=== PATIENT | female | born 1985 | race American Indian/Alaskan Native ===

== ENCOUNTER 2017-06-23 11:57 | Emergency (ER) | payer MEDICAID ==
[2017-06-23 13:11] LABS: Basophils % (Auto) 0.5 % (0.0-1.8); Hematocrit 38.3 % (30.3-42.9); Hemoglobin 12.6 gm/dl (10.1-14.3); Mean Corpuscular HGB Conc 33 % (30-34); Mean Corpuscular Hemoglobin 26 pg (28-32); Mean Corpuscular Volume 80 fl (79-97); Red Blood Count 4.77 M/mm3 (3.65-5.03); Red Cell Distribution Width 14.6 % (13.2-15.2); White Blood Count 7.3 K/mm3 (4.5-11.0)
[2017-06-23 13:18] VITALS: BP 164/100
[2017-06-23 13:19] LABS: Bilirubin,Urine NEG (Negative); Blood,Urine NEG (Negative); Ketones,Urine 80 mg/dL (Negative); Leukocyte Esterase,Urine TR (Negative); Mucus,Urine FEW /HPF; Nitrite,Urine NEG (Negative); Protein,Urine <15 mg/dL mg/dL (Negative); Urobilinogen,Urine < 2.0 mg/dL (<2.0)
[2017-06-23 13:40] LABS: Alanine Aminotransferase 11 units/L (7-56); Albumin 4.5 g/dL (3.9-5); Albumin/Globulin Ratio 1.5 %; Alkaline Phosphatase 55 units/L (35-129); Anion Gap 20 mmol/L; BUN/Creatinine Ratio 6.66; Blood Urea Nitrogen 4 mg/dL (7-17); Calcium 9.1 mg/dL (8.4-10.2); Carbon Dioxide 22 mmol/L (22-30); Chloride 99.6 mmol/L (98-107); Glucose 106 mg/dL (65-100); Lipase 32 units/L (13-60); Potassium 3.8 mmol/L (3.6-5.0); Sodium 138 mmol/L (137-145); Total Protein 7.6 g/dL (6.3-8.2)
[2017-06-23] MEDS ORDERED: ZOFRAN IV ONE (14:03)
[2017-06-23] MEDS ORDERED: PERCOCET 5/325 PO ONE (14:04)
[2017-06-23] MEDS ORDERED: NAPROSYN PO ONE (14:05)
[2017-06-23 14:35] LABS: Platelet Count 190 K/mm3 (140-440)
[2017-06-23] MEDS ORDERED: MOTRIN PO ONE ×2 (14:37→15:09)
--- NOTE | 2017-06-23 15:13 | Emergency Department Report ---
ED Abdominal Pain HPI - General Chief Complaint: Abdominal Pain Stated Complaint: NAUSEA/VOMITING Time Seen by Provider: 06/23/17 13:19 Source: patient, EMS Mode of arrival: Stretcher Limitations: No Limitations - History of Present Illness Initial Comments: Patient is a 32-year-old female who presents with abdominal pain has been going on for the last 3 days. Patient was seen in outside ED and was diagnosed with colitis she was given Zofran and Bentyl and Flagyl for her symptoms. She reports that she has been having some diarrhea no blood in the stool, pain is a 7 out of 10 it is a crampy pain doesn't radiate it is located in the left lower quadrant nothing makes the abdominal pain better or worse. Patient states that she still can one dose of her medication and she came to the ED because she states that she still in pain. Patient denies fever, chills, alcohol ingestion chest pain or constipation. - Related Data Previous Rx's Medication Instructions Recorded Last Taken Type Ibuprofen [Motrin 600 MG tab] 600 mg PO Q8H PRN #40 tablet 12/23/15 Unknown Rx Sulfamethoxazole/Trimethoprim 1 each PO BID #20 tablet 12/23/15 Unknown Rx [Bactrim DS TAB] traMADol [Ultram 50 MG tab] 50 mg PO Q6HR PRN #20 tablet 12/23/15 Unknown Rx traMADol [Ultram 50 MG tab] 50 mg PO Q6HR PRN #11 tablet 06/23/17 Unknown Rx Allergies Allergy/AdvReac Type Severity Reaction Status Date / Time No Known Allergies Allergy Unverified 04/26/14 16:23 ED Review of Systems ROS: Stated complaint: NAUSEA/VOMITING Other details as noted in HPI Comment: All other systems reviewed and negative Constitutional: denies: chills, fever Eyes: denies: eye pain, eye discharge, vision change ENT: denies: ear pain, throat pain Respiratory: denies: cough, shortness of breath, wheezing Cardiovascular: denies: chest pain, palpitations Endocrine: no symptoms reported Gastrointestinal: abdominal pain, nausea, diarrhea Genitourinary: denies: urgency, dysuria, discharge Musculoskeletal: denies: back pain, joint swelling, arthralgia Skin: denies: rash, lesions Neurological: denies: headache, weakness, paresthesias Psychiatric: denies: anxiety, depression Hematological/Lymphatic: denies: easy bleeding, easy bruising ED Past Medical Hx - Past Medical History Previous Medical History?: Yes Hx Hypertension: No Hx Seizures: No Hx Asthma: No - Surgical History Past Surgical History?: Yes Additional Surgical History: right knee - Social History Smoking Status: Current Every Day Smoker Substance Use Type: Alcohol, Marijuana - Medications Home Medications: Home Medications Medication Instructions Recorded Confirmed Last Taken Type Ibuprofen [Motrin 600 MG tab] 600 mg PO Q8H PRN #40 tablet 12/23/15 Unknown Rx Sulfamethoxazole/Trimethoprim 1 each PO BID #20 tablet 12/23/15 Unknown Rx [Bactrim DS TAB] traMADol [Ultram 50 MG tab] 50 mg PO Q6HR PRN #20 tablet 12/23/15 Unknown Rx traMADol [Ultram 50 MG tab] 50 mg PO Q6HR PRN #11 tablet 06/23/17 Unknown Rx ED Physical Exam - General Limitations: No Limitations General appearance: alert - Head Head exam: Present: atraumatic - Eye Eye exam: Present: normal appearance - ENT ENT exam: Present: normal exam - Neck Neck exam: Present: normal inspection - Respiratory Respiratory exam: Present: normal lung sounds bilaterally - Cardiovascular Cardiovascular Exam: Present: regular rate - GI/Abdominal GI/Abdominal exam: Present: soft, tenderness (in LLQ and only with deep palpation. No rovising sign. ). Absent: distended - Extremities Exam Extremities exam: Present: normal inspection - Back Exam Back exam: Present: normal inspection - Neurological Exam Neurological exam: Present: alert, oriented X3 - Psychiatric Psychiatric exam: Present: normal affect - Skin Skin exam: Present: warm ED Course Vital Signs 06/23/17 06/23/17 06/23/17 12:00 12:02 12:04 Temperature Pulse Rate Respiratory Rate Blood Pressure 163/97 163/97 O2 Sat by Pulse 100 100 100 Oximetry 06/23/17 06/23/17 06/23/17 12:06 12:08 12:10 Temperature Pulse Rate Respiratory Rate Blood Pressure 163/97 163/97 163/97 O2 Sat by Pulse 100 100 99 Oximetry 06/23/17 06/23/17 06/23/17 12:11 12:14 12:15 Temperature Pulse Rate Respiratory 16 Rate Blood Pressure 163/97 163/97 O2 Sat by Pulse 98 100 99 Oximetry 06/23/17 06/23/17 06/23/17 12:16 12:18 12:20 Temperature 98.3 F Pulse Rate 52 L Respiratory Rate Blood Pressure 163/97 163/97 163/97 O2 Sat by Pulse 100 97 100 Oximetry 06/23/17 06/23/17 06/23/17 12:22 12:24 12:26 Temperature Pulse Rate Respiratory Rate Blood Pressure 163/97 163/97 163/97 O2 Sat by Pulse 98 100 100 Oximetry 06/23/17 06/23/17 06/23/17 12:28 12:30 12:32 Temperature Pulse Rate Respiratory Rate Blood Pressure 163/97 163/97 163/97 O2 Sat by Pulse 100 100 99 Oximetry 06/23/17 06/23/17 06/23/17 12:34 12:36 12:38 Temperature Pulse Rate Respiratory Rate Blood Pressure 163/97 163/97 163/97 O2 Sat by Pulse 100 100 100 Oximetry 06/23/17 06/23/17 06/23/17 12:40 12:42 12:44 Temperature Pulse Rate Respiratory Rate Blood Pressure 163/97 163/97 163/97 O2 Sat by Pulse 100 99 99 Oximetry 06/23/17 06/23/17 06/23/17 12:46 12:48 12:50 Temperature Pulse Rate Respiratory Rate Blood Pressure 163/97 163/97 163/97 O2 Sat by Pulse 100 100 100 Oximetry 06/23/17 06/23/17 06/23/17 12:52 12:54 12:56 Temperature Pulse Rate Respiratory Rate Blood Pressure 163/97 163/97 163/97 O2 Sat by Pulse 100 100 98 Oximetry 06/23/17 06/23/17 06/23/17 12:58 13:00 13:02 Temperature Pulse Rate Respiratory Rate Blood Pressure 163/97 164/100 164/100 O2 Sat by Pulse 99 100 99 Oximetry 06/23/17 06/23/17 06/23/17 13:04 13:06 13:17 Temperature Pulse Rate 85 Respiratory 18 Rate Blood Pressure 164/100 164/100 O2 Sat by Pulse 99 100 Oximetry 06/23/17 06/23/17 14:55 14:58 Temperature Pulse Rate Respiratory 16 18 Rate Blood Pressure O2 Sat by Pulse Oximetry - Reevaluation(s) Reevaluation #1: 06/23/17 15:27 Evaluated patient and discussed with patient that she will blood work and pain control. Patient currently states the pain is better and is agreeable with discharge. Patient continued to take her medications that she was given at the outside no need for new medications. ED Medical Decision Making - Lab Data Result diagrams: 06/23/17 12:49 06/23/17 12:49 - Medical Decision Making CCdx: Colitis DDx: Pancreatitis, peptic ulcer disease, UTI. We'll get CBC, CMP, UA, pain control and will reassess patient. Critical care attestation.: If time is entered above; I have spent that time in minutes in the direct care of this critically ill patient, excluding procedure time. ED Disposition Clinical Impression: Colitis, Abdominal pain Disposition: - TO HOME OR SELFCARE Is pt being admited?: No Does the pt Need Aspirin: No Condition: Good Instructions: Abdominal Pain (ED) Additional Instructions: Take your medication as directed from your first visit at the Emergency department. If you are experiencing worsening of your symptoms come back to the Emergency department Prescriptions: traMADol [Ultram 50 MG tab] 50 mg PO Q6HR PRN #11 tablet PRN Reason: Pain Referrals: PRIMARY CARE, [Primary Care Provider] - 3-5 Days
== END 2017-06-23 16:15 | disposition home or self-care (01) ==
LOC: ED 11:57
DX: K52.9 Noninfective gastroenteritis and colitis, unspecified (principal); F12.10 Cannabis abuse, uncomplicated; F17.200 Nicotine dependence, unspecified, uncomplicated
CPT/HCPCS: 36415; 80053; 81001; 83690; 85025; 96374; 99284; J2405

== ENCOUNTER 2017-06-26 22:02 | Emergency (ER) | payer SELFPAY ==
[2017-06-26 22:51] VITALS: BP 139/98
[2017-06-26 23:58] LABS: Alanine Aminotransferase 11 units/L (7-56); Albumin 4.4 g/dL (3.9-5); Alkaline Phosphatase 60 units/L (35-129); Anion Gap 23 mmol/L; Blood Urea Nitrogen 9 mg/dL (7-17); Calcium 9.6 mg/dL (8.4-10.2); Carbon Dioxide 21 mmol/L (22-30); Chloride 92.9 mmol/L (98-107); Glucose 91 mg/dL (65-100); Lipase 61 units/L (13-60); Potassium 3.7 mmol/L (3.6-5.0); Sodium 133 mmol/L (137-145); Total Protein 8.7 g/dL (6.3-8.2)
[2017-06-27 00:03] LABS: Basophils % (Auto) 2.3 % (0.0-1.8); Eosinophils % (Auto) 0.6 % (0.0-4.3); Hematocrit 42.9 % (30.3-42.9); Mean Corpuscular HGB Conc 33 % (30-34); Mean Corpuscular Volume 79 fl (79-97); Red Blood Count 5.43 M/mm3 (3.65-5.03); Red Cell Distribution Width 14.6 % (13.2-15.2); White Blood Count 8.5 K/mm3 (4.5-11.0)
[2017-06-27 00:04] LABS: Mean Corpuscular Hemoglobin 26 pg (28-32); Platelet Count 199 K/mm3 (140-440)
== END 2017-06-27 | disposition left against medical advice (07) ==
LOC: ED 22:02
DX: R11.11 Vomiting without nausea (principal); Z53.21 Procedure and treatment not carried out due to patient leaving prior to being seen by health care provider
CPT/HCPCS: 36415; 80053; 83690; 84703; 85025

== ENCOUNTER 2017-11-23 03:21 | Inpatient (IN) | payer SELFPAY ==
[2017-11-23 04:32] LABS: Basophils # (Auto) 0.1 K/mm3 (0.0-0.1); Basophils % (Auto) 0.7 % (0.0-1.8); Eosinophils % (Auto) 0.4 % (0.0-4.3); Hematocrit 35.3 % (30.3-42.9); Hemoglobin 11.3 gm/dl (10.1-14.3); Lymphocytes # (Auto) 1.9 K/mm3 (1.2-5.4); Mean Corpuscular HGB Conc 32 % (30-34); Mean Corpuscular Volume 81 fl (79-97); Monocytes # (Auto) 0.6 K/mm3 (0.0-0.8); Monocytes % (Auto) 5.5 % (0.0-7.3); Red Blood Count 4.38 M/mm3 (3.65-5.03); Red Cell Distribution Width 14.8 % (13.2-15.2)
[2017-11-23 04:41] LABS: BUN/Creatinine Ratio 10; Blood Urea Nitrogen 6 mg/dL (7-17); Hemolysis Index 1
[2017-11-23 04:45] LABS: Mean Corpuscular Hemoglobin 26 pg (28-32); Platelet Count 216 K/mm3 (140-440)
[2017-11-23] MEDS ORDERED: PHENERGAN PO ONE (08:59)
[2017-11-23 09:30] LABS: Alanine Aminotransferase 9 units/L (7-56); Lipase 22 units/L (13-60)
[2017-11-23 09:35] LABS: Bilirubin,Direct < 0.2 mg/dL (0-0.2)
[2017-11-23] MEDS ORDERED: REGLAN IV ONE (13:59)
[2017-11-23] MEDS ORDERED: NACL 0.9% 1000 ML 1,000 ML IV ONE ×2 (13:59→16:38)
--- NOTE | 2017-11-23 14:32 | Emergency Department Report ---
HPI - General Chief Complaint: Nausea/Vomiting/Diarrhea Time Seen by Provider: 11/23/17 13:30 - HPI HPI: This is a 32 year-old female presents to the emergency department with complaint of some right-sided abdominal and flank pain, nausea, vomiting and diarrhea. Patient says that the nausea, vomiting and diarrhea has been going on for past few days. Yesterday she started having the right-sided abdominal and/or flank pain. She started walking with a cane to support herself secondary to the pain in her abdomen. She then went to try and recuperate at her mother's house but then had an episode where she passed out. When she woke up from her syncopal episode she said the pain was worse in her abdomen. However currently, the patient denies any abdominal or flank pain and just says that she continues to have nausea, vomiting and diarrhea. She denies any fever, dysuria, vaginal bleeding or discharge. She denies any past medical history. Her primary care physician is Dr. Sullivan. No recent travel or sick contacts at home. ED Past Medical Hx - Past Medical History Previous Medical History?: No Hx Hypertension: No Hx Seizures: No Hx Asthma: No - Surgical History Past Surgical History?: Yes Additional Surgical History: right knee - Social History Smoking Status: Current Every Day Smoker Substance Use Type: Alcohol, Marijuana - Medications Home Medications: Home Medications Medication Instructions Recorded Confirmed Last Taken Type No Known Home Medications [No 11/23/17 11/23/17 Unknown History Reported Home Medications] ED Review of Systems ROS: Stated complaint: N/V/D Other details as noted in HPI Comment: All other systems reviewed and negative Constitutional: denies: chills, fever Eyes: denies: eye pain, eye discharge, vision change ENT: denies: ear pain, throat pain Respiratory: denies: cough, shortness of breath, wheezing Cardiovascular: denies: chest pain, palpitations Gastrointestinal: abdominal pain, nausea, vomiting, diarrhea Genitourinary: denies: urgency, dysuria, discharge Musculoskeletal: denies: back pain, joint swelling, arthralgia Skin: denies: rash, lesions Neurological: denies: headache, weakness, paresthesias Physical Exam - Physical Exam Vital Signs: Vital Signs 11/23/17 03:39 Temperature 98.8 F Pulse Rate 52 L Respiratory 18 Rate Blood Pressure 151/92 O2 Sat by Pulse 99 Oximetry Physical Exam: GENERAL: The patient is well-developed well-nourished. HENT: Normocephalic. Atraumatic. Patient has moist mucous membranes. EYES: Extraocular motions are intact. Pupils equal reactive to light bilaterally. NECK: Supple. Trachea is midline. CHEST/LUNGS: Clear to auscultation. There is no respiratory distress noted. HEART/CARDIOVASCULAR: Regular. There is no tachycardia. There is no murmur. ABDOMEN: Abdomen is soft. Mild right upper quadrant abdominal tenderness to palpation. No guarding or rebound tenderness. No peritoneal signs. Patient has normal bowel sounds. There is no abdominal distention. SKIN: Skin is warm and dry. NEURO: The patient is awake, alert, and oriented. The patient is cooperative. The patient has no focal neurologic deficits. The patient has normal speech. MUSCULOSKELETAL: There is no tenderness or deformity. There is no limitation range of motion. There is no evidence of acute injury. ED Course Vital Signs 11/23/17 03:39 Temperature 98.8 F Pulse Rate 52 L Respiratory 18 Rate Blood Pressure 151/92 O2 Sat by Pulse 99 Oximetry - Consultations Consultation #1: I spoke to the general surgeon manager combination, Dr. Ponce, who says she is happy to consult on the patient on the floor. 11/23/17 20:24 ED Medical Decision Making - Lab Data Result diagrams: 11/23/17 03:56 11/23/17 03:56 - EKG Data -: EKG Interpreted by Me EKG shows normal: sinus rhythm, axis, intervals, QRS complexes, ST-T waves Rate: bradycardia (49 bpm) - EKG Data When compared to previous EKG there are: previous EKG unavailable Interpretation: other (sinus bradycardia, no STEMI) - Radiology Data Radiology results: report reviewed, image reviewed interpreted by me: Abdominal x-ray shows nonspecific nonobstructive bowel gas. PROCEDURE: CT ABDOMEN PELVIS W CON TECHNIQUE: Computerized axial tomography of the abdomen and pelvis was performed after the IV injection of iodinated nonionic contrast. DLP 1582.01 mGy-cm. HISTORY: Abdominal pain. COMPARISON: No prior studies are available for comparison. FINDINGS: Visualized lower thorax: No significant abnormality. Liver: 2.1 cm low-attenuation lesion in the right lobe of the liver that demonstrates peripheral nodular enhancement and demonstrates fill-in on delayed imaging. Spleen: Normal size and attenuation. Gallbladder and biliary system: Normal. Pancreas: Normal. Adrenals: Normal. Kidneys: 6.5 mm low-attenuation lesion in the right kidney. GI tract: Transverse and more distal colon thick-walled but decompressed. Cecum distended with air and stool. A normal appendix is not confidently identified. What may be normal caliber appendix measuring 4.3 mm on coronal images, although this could represent a vessel (49-50, series 201). A few scattered mildly prominent loops of ileum and jejunum without transition point. Lymph nodes and mesentery: Normal. Vasculature: Normal. Bladder: Normal. Reproductive organs: Bilateral ovarian follicles. 2.4 cm left ovarian/adnexal low-attenuation lesion. Peritoneum: No free fluid. Musculoskeletal structures: Expansile lytic appearance of the anterior lateral left 6th rib with subtle irregularity and deformity. Other: Pelvic phleboliths. Tiny fat filled umbilical hernia. IMPRESSION: A few mildly prominent loops of ileum and jejunum, felt to more likely represent ileus or enteritis rather than obstruction. Colon decompressed. Normal appendix not confidently seen. Consider further evaluation including examination with oral contrast if there is continued clinical concern for appendiceal pathology. No secondary signs of appendicitis. Low-attenuation lesion in the right lobe of the liver with subtle peripheral nodular enhancement that demonstrates fill-in on delayed images, likely hemangioma. Consider MRI for further characterization if there is continued clinical concern and if patient has no contraindication to MRI. Low-attenuation left renal lesion, likely cyst. Consider confirmation with renal ultrasound. Probable left ovarian cyst. Expansile lytic appearance of the anterior lateral left 6th rib with subtle irregularity and deformity. Consider posttraumatic change, but cannot exclude neoplastic/infiltrative etiology. Recommend clinical correlation and further evaluation including bone scan if there is continued clinical concern. Transcribed By: REYNALDO Dictated By: MELINDA KURTZ MD Electronically Authenticated By: MELINDA KURTZ MD Signed Date/Time: 11/23/17 2940 - Medical Decision Making The patient presents with a few days of nausea, vomiting and diarrhea and some abdominal pain today. Labs are most unremarkable except for signs of dehydration. Abdominal x-ray does not show any acute process. CT of the abdomen and pelvis shows ileus versus enteritis, lesion of the right lobe of the liver, left ovarian cyst, and a lytic appearance of one of her ribs. She was given some Phenergan and Reglan and 2 L of IV fluid. Attempted oral challenge but the patient failed and continued to vomit. For this reason she' ll be admitted to the hospital for further evaluation and treatment is been accepted for admission by the hospitalist, Dr. Jacobson. - Differential Diagnosis cholelithiasis, cholecystitis, bowel production, gastroenteritis Critical Care Time: No Critical care attestation.: If time is entered above; I have spent that time in minutes in the direct care of this critically ill patient, excluding procedure time. ED Disposition Clinical Impression: Intractable abdominal pain, Dehydration Intractable vomiting Qualifiers: Vomiting type: unspecified Nausea presence: with nausea Qualified Code(s): R11.2 - Nausea with vomiting, unspecified Ovarian cyst Qualifiers: Laterality: left Qualified Code(s): N83.202 - Unspecified ovarian cyst, left side Disposition: OP ADMIT IP TO THIS HOSP Is pt being admited?: Yes Condition: Stable Referrals: ASHOK TRAN MD [Primary Care Provider] - 3-5 Days Time of Disposition: 20:27
--- NOTE | 2017-11-23 14:59 | XRay Report ---
ABDOMEN, 2 views: History: Abdominal pain. There is no evidence of free air beneath the diaphragms. The gas pattern within the abdomen is unremarkable. There is no evidence of bowel dilatation, significant air-fluid levels, or pathologic calcifications. Organ shadows are unremarkable. IMPRESSION: Unremarkable abdomen.
[2017-11-23] MEDS ORDERED: NORCO 5/325 PO ONE (16:15)
[2017-11-23 16:19] LABS: Bacteria,Urine 1+ /HPF (Negative); Bilirubin,Urine NEG (Negative); Blood,Urine NEG (Negative); Color,Urine Yellow (Yellow); Mucus,Urine FEW /HPF; Nitrite,Urine NEG (Negative); Urobilinogen,Urine < 2.0 mg/dL (<2.0)
--- NOTE | 2017-11-23 17:34 | Cat Scan Report ---
FINAL REPORT PROCEDURE: CT ABDOMEN PELVIS W CON TECHNIQUE: Computerized axial tomography of the abdomen and pelvis was performed after the IV injection of iodinated nonionic contrast. DLP 1582.01 mGy-cm. HISTORY: Abdominal pain. COMPARISON: No prior studies are available for comparison. FINDINGS: Visualized lower thorax: No significant abnormality. Liver: 2.1 cm low-attenuation lesion in the right lobe of the liver that demonstrates peripheral nodular enhancement and demonstrates fill-in on delayed imaging. Spleen: Normal size and attenuation. Gallbladder and biliary system: Normal. Pancreas: Normal. Adrenals: Normal. Kidneys: 6.5 mm low-attenuation lesion in the right kidney. GI tract: Transverse and more distal colon thick-walled but decompressed. Cecum distended with air and stool. A normal appendix is not confidently identified. What may be normal caliber appendix measuring 4.3 mm on coronal images, although this could represent a vessel (49-50, series 201). A few scattered mildly prominent loops of ileum and jejunum without transition point. Lymph nodes and mesentery: Normal. Vasculature: Normal. Bladder: Normal. Reproductive organs: Bilateral ovarian follicles. 2.4 cm left ovarian/adnexal low-attenuation lesion. Peritoneum: No free fluid. Musculoskeletal structures: Expansile lytic appearance of the anterior lateral left 6th rib with subtle irregularity and deformity. Other: Pelvic phleboliths. Tiny fat filled umbilical hernia. IMPRESSION: A few mildly prominent loops of ileum and jejunum, felt to more likely represent ileus or enteritis rather than obstruction. Colon decompressed. Normal appendix not confidently seen. Consider further evaluation including examination with oral contrast if there is continued clinical concern for appendiceal pathology. No secondary signs of appendicitis. Low-attenuation lesion in the right lobe of the liver with subtle peripheral nodular enhancement that demonstrates fill-in on delayed images, likely hemangioma. Consider MRI for further characterization if there is continued clinical concern and if patient has no contraindication to MRI. Low-attenuation left renal lesion, likely cyst. Consider confirmation with renal ultrasound. Probable left ovarian cyst. Expansile lytic appearance of the anterior lateral left 6th rib with subtle irregularity and deformity. Consider posttraumatic change, but cannot exclude neoplastic/infiltrative etiology. Recommend clinical correlation and further evaluation including bone scan if there is continued clinical concern.
[2017-11-23] MEDS ORDERED: NACL 0.9% 1000 ML 1,000 ML IV SCH (21:00)
--- NOTE | 2017-11-23 21:36 | History and Physical Report ---
History of Present Illness Date of examination: 11/23/17 Date of admission: 11/23/17 Chief complaint: CC Nausea vomiting Diarrhea and RUQ pain for 4 days History of present illness: [place]: 32 year-old female poor historian presents to the emergency department nausea, vomiting and diarrhea for about 3 to 4 days.Associated with Rt Upper quadrant /flank pain intermittent in nature. Vomiting x4 to 6 times per day.Loose watery BM's 3 to 4 per day.No fever or chills.No recent Abx use. Pain is 6 10.Sharp intermittent in nature.No recent exposure to any sick contacts.Apparently passed out.For a few seconds after feeling lightheaded while walking. Past Medical History None Surgical History right knee surgery.Not specified Social History Smoking Status: Current Every Day Smoker Substance Use Type: Alcohol, Marijuana Family History:Htn Medications Home Medications: Home Medications Medication Instructions Recorded Confirmed Last Taken Type No Known Home Medications [No 11/23/17 11/23/17 Unknown History Reported Home Medications] Review of Systems Stated complaint: N/V/D Other details as noted in HPI Comment: All other systems reviewed and negative Constitutional: denies: chills, fever Eyes: denies: eye pain, eye discharge, vision change ENT: denies: ear pain, throat pain Respiratory: denies: cough, shortness of breath, wheezing Cardiovascular: denies: chest pain, palpitations Gastrointestinal: abdominal pain, nausea, vomiting, diarrhea Genitourinary: denies: urgency, dysuria, discharge Musculoskeletal: denies: back pain, joint swelling, arthralgia Skin: denies: rash, lesions Neurological: denies: headache, weakness, paresthesias Medications and Allergies Allergies Allergy/AdvReac Type Severity Reaction Status Date / Time ondansetron HCl AdvReac Nausea Verified 06/26/17 22:37 [From Zofran (as hydrochloride)] Home Medications Medication Instructions Recorded Confirmed Last Taken Type No Known Home Medications [No 11/23/17 11/23/17 Unknown History Reported Home Medications] Active Meds: Active Medications Heparin Sodium (Porcine) (Heparin) 5,000 unit SUB-Q Q8HR [facility] Sodium Chloride (Nacl 0.9% 1000 Ml) 1,000 mls @ 125 mls/hr IV DIRECT SHAILA Exam - Constitutional Vitals: Temp Pulse Resp BP Pulse Ox 98.7 F 63 18 132/84 98 11/23/17 15:35 11/23/17 18:35 11/23/17 18:35 11/23/17 18:35 11/23/17 18:35 General appearance: Present: mild distress, well-nourished - EENT Eyes: Present: PERRL ENT: hearing intact, clear oral mucosa, other (Dry tongue) - Neck Neck: Present: supple, normal ROM - Respiratory Respiratory effort: normal Respiratory: bilateral: CTA - Cardiovascular Heart rate: 80 Rhythm: regular Heart Sounds: Present: S1 & S2. Absent: rub, click - Extremities Extremities: no ischemia, pulses intact, pulses symmetrical, No edema Peripheral Pulses: within normal limits - Abdominal General gastrointestinal: Present: soft, non-tender, non-distended, normal bowel sounds Female genitourinary: Present: normal - Rectal Rectal Exam: deferred - Integumentary Integumentary: Present: clear, warm, dry - Musculoskeletal Musculoskeletal: gait normal, strength equal bilaterally - Psychiatric Psychiatric: appropriate mood/affect, intact judgment & insight - Neurologic Neurologic: CNII-XII intact, moves all extremities - Allied Health Allied health notes reviewed: nursing, case management Results - Labs CBC & Chem 7: 11/23/17 03:56 11/23/17 03:56 Labs: Laboratory Last Values WBC 11.1 K/mm3 (4.5-11.0) H 11/23/17 03:56 RBC 4.38 M/mm3 (3.65-5.03) 11/23/17 03:56 Hgb 11.3 gm/dl (10.1-14.3) 11/23/17 03:56 Hct 35.3 % (30.3-42.9) 11/23/17 03:56 MCV 81 fl (79-97) 11/23/17 03:56 MCH 26 pg (28-32) L 11/23/17 03:56 MCHC 32 % (30-34) 11/23/17 03:56 RDW 14.8 % (13.2-15.2) 11/23/17 03:56 Plt Count 216 K/mm3 (140-440) 11/23/17 03:56 Lymph % (Auto) 17.0 % (13.4-35.0) 11/23/17 03:56 [place] % (Auto) 5.5 % (0.0-7.3) 11/23/17 03:56 Eos % (Auto) 0.4 % (0.0-4.3) 11/23/17 03:56 Baso % (Auto) 0.7 % (0.0-1.8) 11/23/17 03:56 Lymph # 1.9 K/mm3 (1.2-5.4) 11/23/17 03:56 [place] # 0.6 K/mm3 (0.0-0.8) 11/23/17 03:56 Eos # 0.0 K/mm3 (0.0-0.4) 11/23/17 03:56 Baso # 0.1 K/mm3 (0.0-0.1) 11/23/17 03:56 Seg Neutrophils % 76.4 % (40.0-70.0) H 11/23/17 03:56 Seg Neutrophils # 8.5 K/mm3 (1.8-7.7) H 11/23/17 03:56 Sodium 140 mmol/L (137-145) 11/23/17 03:56 Potassium 3.6 mmol/L (3.6-5.0) 11/23/17 03:56 Chloride 101.8 mmol/L (98-107) 11/23/17 03:56 Carbon Dioxide 24 mmol/L (22-30) 11/23/17 03:56 Anion Gap 18 mmol/L 11/23/17 03:56 BUN 6 mg/dL (7-17) L 11/23/17 03:56 Creatinine 0.6 mg/dL (0.7-1.2) L 11/23/17 03:56 Estimated GFR > 60 ml/min 11/23/17 03:56 BUN/Creatinine Ratio 10 % 11/23/17 03:56 Glucose 125 mg/dL (65-100) H 11/23/17 03:56 Calcium 9.0 mg/dL (8.4-10.2) 11/23/17 03:56 Total Bilirubin 0.40 mg/dL (0.1-1.2) 11/23/17 03:56 Direct Bilirubin < 0.2 mg/dL (0-0.2) 11/23/17 03:56 Indirect Bilirubin 0.2 mg/dL 11/23/17 03:56 AST 10 units/L (5-40) 11/23/17 03:56 ALT 9 units/L (7-56) 11/23/17 03:56 Alkaline Phosphatase 56 units/L (35-129) 11/23/17 03:56 Troponin T < 0.010 ng/mL (0.00-0.029) 11/23/17 09:31 Total Protein 7.2 g/dL (6.3-8.2) 11/23/17 03:56 Albumin 4.0 g/dL (3.9-5) 11/23/17 03:56 Albumin/Globulin Ratio 1.3 % 11/23/17 03:56 Lipase 22 units/L (13-60) 11/23/17 03:56 TSH 0.787 mlU/mL (0.270-4.200) 11/23/17 09:31 HCG, Qual Negative (Negative) 11/23/17 09:31 Urine Color Yellow (Yellow) 11/23/17 15:40 Urine Turbidity Clear (Clear) 11/23/17 15:40 Urine pH 7.0 (5.0-7.0) 11/23/17 15:40 Ur Specific [place] 1.021 (1.003-1.030) 11/23/17 15:40 Urine Protein 30 mg/dl mg/dL (Negative) 11/23/17 15:40 Urine Glucose (UA) Neg mg/dL (Negative) 11/23/17 15:40 Urine Ketones 80 mg/dL (Negative) 11/23/17 15:40 Urine Blood Neg (Negative) 11/23/17 15:40 Urine Nitrite Neg (Negative) 11/23/17 15:40 Urine Bilirubin Neg (Negative) 11/23/17 15:40 Urine Urobilinogen < 2.0 mg/dL (<2.0) 11/23/17 15:40 Ur Leukocyte Esterase Neg (Negative) 11/23/17 15:40 Urine WBC (Auto) 3.0 /HPF (0.0-6.0) 11/23/17 15:40 Urine RBC (Auto) 7.0 /HPF (0.0-6.0) 11/23/17 15:40 U Epithel Cells (Auto) 3.0 /HPF (0-13.0) 11/23/17 15:40 Urine Bacteria (Auto) 1+ /HPF (Negative) 11/23/17 15:40 Urine Mucus Few /HPF 11/23/17 15:40 Cardiac Enzymes 11/23/17 Range/Units 09:31 Troponin T < 0.010 (0.00-0.029) ng/mL Liver Function 11/23/17 Range/Units 03:56 Total Bilirubin 0.40 (0.1-1.2) mg/dL Direct Bilirubin < 0.2 (0-0.2) mg/dL AST 10 (5-40) units/L ALT 9 (7-56) units/L Alkaline Phosphatase 56 (35-129) units/L Albumin 4.0 (3.9-5) g/dL Urine 11/23/17 Range/Units 15:40 Urine Color Yellow (Yellow) Urine pH 7.0 (5.0-7.0) Ur Specific [place] 1.021 (1.003-1.030) Urine Protein 30 mg/dl (Negative) mg/dL Urine Glucose (UA) Neg (Negative) mg/dL - Imaging and Cardiology Abdominal x-ray: report reviewed (NAF) CT scan - abdomen: report reviewed (Lytic lesion L 6th rib anteriorly-post traumatic with correlation of history) Assessment and Plan Advance Directives: Yes VTE prophylaxis?: Chemical Plan of care discussed with patient/family: Yes - Patient Problems (1) Acute gastroenteritis Current Visit: Yes Status: Acute Plan to address problem: IV fluids clear liquids and symptomatic treatment (2) Dehydration Current Visit: Yes Status: Acute Plan to address problem: IV fluids for now (3) Syncope Current Visit: Yes Status: Acute Qualifiers: Syncope type: vasovagal syncope Qualified Code(s): R55 - Syncope and collapse Plan to address problem: Sec to volume depletion.No further w/u ordered. (4) Intractable abdominal pain Current Visit: Yes Status: Acute Plan to address problem: Surgey consult requested.CT abdomen negative for any acute process. (5) DVT prophylaxis Current Visit: Yes Status: Acute Plan to address problem: On Lovenox GI prophylaxis also ordered
[2017-11-23] MEDS ORDERED: DULCOLAX PR PRN (21:40)
[2017-11-23] MEDS ORDERED: TYLENOL PO PRN (21:40)
[2017-11-23] MEDS ORDERED: PHENERGAN PR PRN (21:40)
[2017-11-23] MEDS ORDERED: MILK OF MAGNESIA PO PRN (21:40)
[2017-11-23] MEDS: REGLAN IV PRN (21:56)
[2017-11-23] MEDS ORDERED: MORPHINE ONE (21:57)
[2017-11-23] MEDS: MORPHINE IV PRN (21:58)
[2017-11-23] MEDS ORDERED: NACL 0.9% 1000 ML 0 ML ONE (23:51)
[2017-11-23] MEDS ORDERED: HEPARIN ONE (23:54)
[2017-11-24] MEDS ORDERED: D5NS 1,000 ML IV ONE (00:03)
[2017-11-24] MEDS: HEPARIN SUB-Q SCH ×4 (00:14→21:24)
[2017-11-24] MEDS: D5NS 1,000 ML IV SCH ×3 (00:14→13:31)
[2017-11-24] MEDS ORDERED: MORPHINE ONE (00:15)
[2017-11-24] MEDS: MORPHINE IV PRN (00:20)
[2017-11-24] MEDS: ZOSYN/NS 4.5GM/100ML 4.5 GM/100 ML VIAL IV SCH ×4 (01:11→21:23)
[2017-11-24] MEDS: REGLAN IV PRN (05:30)
[2017-11-24 06:48] LABS: Basophils % (Auto) 0.3 % (0.0-1.8); Hematocrit 35.3 % (30.3-42.9); Hemoglobin 11.4 gm/dl (10.1-14.3); Lymphocytes # (Auto) 1.4 K/mm3 (1.2-5.4); Lymphocytes % (Auto) 11.5 % (13.4-35.0); Mean Corpuscular HGB Conc 32 % (30-34); Mean Corpuscular Volume 80 fl (79-97); Monocytes # (Auto) 0.8 K/mm3 (0.0-0.8); Platelet Count 215 K/mm3 (140-440); Red Blood Count 4.41 M/mm3 (3.65-5.03); Red Cell Distribution Width 14.7 % (13.2-15.2)
[2017-11-24 06:50] LABS: Alanine Aminotransferase 8 units/L (7-56); Albumin 3.8 g/dL (3.9-5); BUN/Creatinine Ratio 12; Blood Urea Nitrogen 7 mg/dL (7-17); Hemolysis Index 4
[2017-11-24 06:52] LABS: Mean Corpuscular Hemoglobin 26 pg (28-32)
--- NOTE | 2017-11-24 11:42 | Consultation ---
History of Present Illness Consult date: 11/24/17 Chief complaint: abd pain, n/v, diarrhea - History of present illness History of present illness: 32 yo F with no PMHx presents with c/o R sided abdominal pain, nausea, vomiting (nonbloody/nonbilious), and diarrhea for the past 2 days. The pain started first and came on suddenly. It is located in the RUQ and flank area and does not radiate. The abd pain, n/v, diarrhea are now improved. She did have emesis once overnight. She denies symptoms like this in the past. No sick contacts. No f/c, cp, sob. Past History Past Medical History: No medical history Past Surgical History: Other (arthroscopy) Social history: smoking (marijuana daily), alcohol abuse (social) Family history: no significant family history Medications and Allergies Allergies Allergy/AdvReac Type Severity Reaction Status Date / Time ondansetron HCl AdvReac Nausea Verified 06/26/17 22:37 [From Zofran (as hydrochloride)] Home Medications Medication Instructions Recorded Confirmed Last Taken Type No Known Home Medications [No 11/23/17 11/23/17 Unknown History Reported Home Medications] Active Meds: Active Medications Acetaminophen (Tylenol) 650 mg PO Q4H PRN PRN Reason: Pain MILD(1-3)/Fever >100.5/ROBBINS Bisacodyl (Dulcolax) 10 mg [place] QDAY PRN PRN Reason: Constipation unrelieved by MOM Heparin Sodium (Porcine) (Heparin) 5,000 unit SUB-Q Q8HR [facility] Last Admin: 11/24/17 05:30 Dose: 5,000 unit Dextrose/Sodium Chloride (D5ns) 1,000 mls @ 150 mls/hr IV DIRECT [facility] Last Admin: 11/24/17 07:56 Dose: 150 mls/hr Piperacillin Sod/Tazobactam Sod (Zosyn/Ns 4.5gm/100ml) 4.5 gm in 100 mls @ 200 mls/hr IV Q8HR [facility]AILA PRN Reason: Protocol Last Admin: 11/24/17 05:29 Dose: 200 mls/hr Influenza Virus Vaccine Quadrival (Fluarix Quad [id number](36 Mos+) 0.5 ml IM .ONCE ONE Stop: 11/24/17 12:01 Magnesium Hydroxide (Milk Of Magnesia) 30 ml PO Q4H PRN PRN Reason: Constipation Metoclopramide HCl (Reglan) 10 mg IV Q4H PRN PRN Reason: Nausea And Vomiting Last Admin: 11/24/17 05:30 Dose: 10 mg Morphine Sulfate (Morphine) 4 mg IV Q4H PRN PRN Reason: Pain , Severe (7-10) Last Admin: 11/24/17 00:20 Dose: 4 mg Promethazine HCl (Phenergan) 25 mg [place] Q6H PRN PRN Reason: N/V IF NPO AND NO IV ACCESS Review of Systems All systems: negative (see hpi) Exam Vital Signs Temp Pulse Resp BP Pulse Ox 98.8 F 52 L 18 151/92 99 11/23/17 03:39 11/23/17 03:39 11/23/17 03:39 11/23/17 03:39 11/23/17 03:39 Narrative exam: Gen: AAOx3. NAD CV: S1, S2+ Resp: NO audible wheezes Abd: soft, ND, mild TTP Right upper quadrant, no r/r/g Ext: no c/c/e Results - Labs 11/24/17 05:32 11/24/17 05:32 Abnormal lab results 11/24/17 11/24/17 Range/Units 05:32 05:32 WBC 12.0 H (4.5-11.0) K/mm3 MCH 26 L (28-32) pg Lymph % (Auto) 11.5 L (13.4-35.0) % Seg Neutrophils % 81.2 H (40.0-70.0) % Seg Neutrophils # 9.7 H (1.8-7.7) K/mm3 Potassium 3.5 L (3.6-5.0) mmol/L Chloride 97.4 L (98-107) mmol/L Creatinine 0.6 L (0.7-1.2) mg/dL Glucose 117 H (65-100) mg/dL Albumin 3.8 L (3.9-5) g/dL Diabetes panel 11/23/17 11/24/17 Range/Units 03:56 05:32 Sodium 137 (137-145) mmol/L Potassium 3.5 L (3.6-5.0) mmol/L Chloride 97.4 L (98-107) mmol/L Carbon Dioxide 23 (22-30) mmol/L BUN 7 (7-17) mg/dL Creatinine 0.6 L (0.7-1.2) mg/dL Glucose 117 H (65-100) mg/dL Hemoglobin A1c 5.1 (4-6) % Calcium 9.0 (8.4-10.2) mg/dL AST 9 (5-40) units/L ALT 8 (7-56) units/L Alkaline Phosphatase 53 (35-129) units/L Total Protein 7.5 (6.3-8.2) g/dL Albumin 3.8 L (3.9-5) g/dL Thyroid panel 11/23/17 Range/Units 09:31 TSH 0.787 (0.270-4.200) mlU/mL Calcium panel 11/24/17 Range/Units 05:32 Calcium 9.0 (8.4-10.2) mg/dL Albumin 3.8 L (3.9-5) g/dL Pituitary panel 11/23/17 11/24/17 Range/Units 09:31 05:32 Sodium 137 (137-145) mmol/L Potassium 3.5 L (3.6-5.0) mmol/L Chloride 97.4 L (98-107) mmol/L Carbon Dioxide 23 (22-30) mmol/L BUN 7 (7-17) mg/dL Creatinine 0.6 L (0.7-1.2) mg/dL Glucose 117 H (65-100) mg/dL Calcium 9.0 (8.4-10.2) mg/dL TSH 0.787 (0.270-4.200) mlU/mL Adrenal panel 11/24/17 Range/Units 05:32 Sodium 137 (137-145) mmol/L Potassium 3.5 L (3.6-5.0) mmol/L Chloride 97.4 L (98-107) mmol/L Carbon Dioxide 23 (22-30) mmol/L BUN 7 (7-17) mg/dL Creatinine 0.6 L (0.7-1.2) mg/dL Glucose 117 H (65-100) mg/dL Calcium 9.0 (8.4-10.2) mg/dL Total Bilirubin 0.40 (0.1-1.2) mg/dL AST 9 (5-40) units/L ALT 8 (7-56) units/L Alkaline Phosphatase 53 (35-129) units/L Total Protein 7.5 (6.3-8.2) g/dL Albumin 3.8 L (3.9-5) g/dL - Imaging CT scan - abdomen: report reviewed (a few mildly prominent loops of of ileum and jejunum felt to more likely represent ileus or enteritis rather than obstruction. colon decompressed. Normal appendix not confidently seen. low attenuation lesion in the right lobe of the liver likely hemangioma.), image reviewed US - pelvic: report reviewed, image reviewed Assessment and Plan 32 yo F with abd pain, n/v, diarrhea 1. gastroenteritis is likely etiology Plan: 1. trial of clear liquids, adv as tolerated 2. IVF 3. pain and nausea control 4. if patient does not tolerate liquids, recommend RUQ u/s, however symptoms are not consistent with gallbladder pathology. 5. no acute surgical intervention
[2017-11-24] MEDS ORDERED: Fluarix Quad 2017-2018(36 MOS+ IM ONE (12:00)
--- NOTE | 2017-11-24 16:00 | Progress Note ---
Assessment and Plan Assessment and plan: 32 year-old female poor historian presents to the emergency department nausea, vomiting and diarrhea for about 3 to 4 days. Associated with Rt Upper quadrant /flank pain intermittent in nature. Vomiting x4 to 6 times per day. Loose watery BM's 3 to 4 per day. No fever or chills. No recent Abx use. She also denies any illicit drug use. She rates the pain 5/10 in intensity today. She states is sharp and intermittent in nature she denies any recent exposure she says the pain was significant enough that she had a syncopal episode while ambulating. (1) Acute gastroenteritis IV fluids clear liquids and symptomatic treatment We'll obtain GI evaluation for persistent intractable pain. Pain control PPI and anti-emetics (2) Dehydration IV fluids for now (3) Syncope Sec to volume depletion.No further w/u ordered. Patient also with bradycardia will obtain echocardiogram. (4) Intractable abdominal pain Surgical input noted and will obtain right upper quadrant ultrasound. DVT and GI prophylaxis. Plan of care discussed in detail with the patient. History Interval history: Patient seen and examined, still with some abdominal pain 5/10 with no further nausea today. Hospitalist Physical - Physical exam Narrative exam: VITAL SIGNS: Reviewed. GENERAL: The patient appeared well nourished and normally developed. Vital signs as documented. HEAD: No signs of head trauma. EYES: Pupils are equal. Extraocular motions intact. EARS: Hearing grossly intact. MOUTH: Oropharynx is normal. NECK: No adenopathy, no JVD. CHEST: Chest with clear breath sounds bilaterally. No wheezes, rales, or rhonchi. CARDIAC: Regular rate and rhythm. S1 and S2, without murmurs, gallops, or rubs. VASCULAR: No Edema. Peripheral pulses normal and equal in all extremities. ABDOMEN: Soft, right upper quadrant tenderness. No sign of distention. No rebound or guarding, and no masses palpated. Bowel Sounds normal. MUSCULOSKELETAL: Good range of motion of all major joints. Extremities without clubbing, cyanosis or edema. NEUROLOGIC EXAM: Alert and oriented x 3. No focal sensory or strength deficits. Speech normal. Follows commands. PSYCHIATRIC: Mood normal. SKIN: No rash or lesions. - Constitutional Vitals: Temp Pulse Resp BP Pulse Ox 98.9 F 49 L 20 136/80 97 11/24/17 07:58 11/24/17 07:58 11/24/17 07:58 11/24/17 07:58 11/24/17 07:58 General appearance: Present: mild distress, well-nourished Results - Labs CBC & Chem 7: 11/24/17 05:32 11/24/17 05:32 Labs: Laboratory Last Values WBC 12.0 K/mm3 (4.5-11.0) H 11/24/17 05:32 RBC 4.41 M/mm3 (3.65-5.03) 11/24/17 05:32 Hgb 11.4 gm/dl (10.1-14.3) 11/24/17 05:32 Hct 35.3 % (30.3-42.9) 11/24/17 05:32 MCV 80 fl (79-97) 11/24/17 05:32 MCH 26 pg (28-32) L 11/24/17 05:32 MCHC 32 % (30-34) 11/24/17 05:32 RDW 14.7 % (13.2-15.2) 11/24/17 05:32 Plt Count 215 K/mm3 (140-440) 11/24/17 05:32 Lymph % (Auto) 11.5 % (13.4-35.0) L 11/24/17 05:32 [place] % (Auto) 7.0 % (0.0-7.3) 11/24/17 05:32 Eos % (Auto) 0.0 % (0.0-4.3) 11/24/17 05:32 Baso % (Auto) 0.3 % (0.0-1.8) 11/24/17 05:32 Lymph # 1.4 K/mm3 (1.2-5.4) 11/24/17 05:32 [place] # 0.8 K/mm3 (0.0-0.8) 11/24/17 05:32 Eos # 0.0 K/mm3 (0.0-0.4) 11/24/17 05:32 Baso # 0.0 K/mm3 (0.0-0.1) 11/24/17 05:32 Seg Neutrophils % 81.2 % (40.0-70.0) H 11/24/17 05:32 Seg Neutrophils # 9.7 K/mm3 (1.8-7.7) H 11/24/17 05:32 Sodium 137 mmol/L (137-145) 11/24/17 05:32 Potassium 3.5 mmol/L (3.6-5.0) L 11/24/17 05:32 Chloride 97.4 mmol/L (98-107) L 11/24/17 05:32 Carbon Dioxide 23 mmol/L (22-30) 11/24/17 05:32 Anion Gap 20 mmol/L 11/24/17 05:32 BUN 7 mg/dL (7-17) 11/24/17 05:32 Creatinine 0.6 mg/dL (0.7-1.2) L 11/24/17 05:32 Estimated GFR > 60 ml/min 11/24/17 05:32 BUN/Creatinine Ratio 12 % 11/24/17 05:32 Glucose 117 mg/dL (65-100) H 11/24/17 05:32 Hemoglobin A1c 5.1 % (4-6) 11/23/17 03:56 Calcium 9.0 mg/dL (8.4-10.2) 11/24/17 05:32 Total Bilirubin 0.40 mg/dL (0.1-1.2) 11/24/17 05:32 Direct Bilirubin < 0.2 mg/dL (0-0.2) 11/23/17 03:56 Indirect Bilirubin 0.2 mg/dL 11/23/17 03:56 AST 9 units/L (5-40) 11/24/17 05:32 ALT 8 units/L (7-56) 11/24/17 05:32 Alkaline Phosphatase 53 units/L (35-129) 11/24/17 05:32 Troponin T < 0.010 ng/mL (0.00-0.029) 11/23/17 09:31 Total Protein 7.5 g/dL (6.3-8.2) 11/24/17 05:32 Albumin 3.8 g/dL (3.9-5) L 11/24/17 05:32 Albumin/Globulin Ratio 1.0 % 11/24/17 05:32 Lipase 22 units/L (13-60) 11/23/17 03:56 TSH 0.787 mlU/mL (0.270-4.200) 11/23/17 09:31 HCG, Qual Negative (Negative) 11/23/17 09:31 Urine Color Yellow (Yellow) 11/23/17 15:40 Urine Turbidity Clear (Clear) 11/23/17 15:40 Urine pH 7.0 (5.0-7.0) 11/23/17 15:40 Ur Specific [place] 1.021 (1.003-1.030) 11/23/17 15:40 Urine Protein 30 mg/dl mg/dL (Negative) 11/23/17 15:40 Urine Glucose (UA) Neg mg/dL (Negative) 11/23/17 15:40 Urine Ketones 80 mg/dL (Negative) 11/23/17 15:40 Urine Blood Neg (Negative) 11/23/17 15:40 Urine Nitrite Neg (Negative) 11/23/17 15:40 Urine Bilirubin Neg (Negative) 11/23/17 15:40 Urine Urobilinogen < 2.0 mg/dL (<2.0) 11/23/17 15:40 Ur Leukocyte Esterase Neg (Negative) 11/23/17 15:40 Urine WBC (Auto) 3.0 /HPF (0.0-6.0) 11/23/17 15:40 Urine RBC (Auto) 7.0 /HPF (0.0-6.0) 11/23/17 15:40 U Epithel Cells (Auto) 3.0 /HPF (0-13.0) 11/23/17 15:40 Urine Bacteria (Auto) 1+ /HPF (Negative) 11/23/17 15:40 Urine Mucus Few /HPF 11/23/17 15:40
--- NOTE | 2017-11-24 17:48 | Event Note ---
Date: 11/24/17 - full GI consult dictated - probable gastroenteritis -no plans scope - ok to d/c when tolerating po - will follow
[2017-11-25] MEDS: HEPARIN SUB-Q SCH ×2 (05:35→12:59)
[2017-11-25] MEDS: ZOSYN/NS 4.5GM/100ML 4.5 GM/100 ML VIAL IV SCH ×2 (05:35→13:00)
[2017-11-25 06:08] LABS: Hematocrit 39.6 % (30.3-42.9); Hemoglobin 12.6 gm/dl (10.1-14.3); Mean Corpuscular HGB Conc 32 % (30-34); Mean Corpuscular Volume 79 fl (79-97); Red Blood Count 5.03 M/mm3 (3.65-5.03); Red Cell Distribution Width 14.4 % (13.2-15.2)
[2017-11-25 06:09] LABS: Mean Corpuscular Hemoglobin 25 pg (28-32); Platelet Count 237 K/mm3 (140-440)
[2017-11-25 06:29] LABS: Alanine Aminotransferase 8 units/L (7-56); Albumin 3.9 g/dL (3.9-5); BUN/Creatinine Ratio 7; Blood Urea Nitrogen 4 mg/dL (7-17); Calcium 9.2 mg/dL (8.4-10.2); Hemolysis Index 3
[2017-11-25] MEDS ORDERED: CEPHULAC PO PRN (10:52)
--- NOTE | 2017-11-25 11:00 | Ultrasound Report ---
ULTRASOUND ABDOMEN COMPLETE: TECHNIQUE: Transabdominal ultrasound with color Doppler interrogation. HISTORY: abdominal pain, cholelithiasis. COMPARISON: CT abdomen pelvis dated 11/23/17. FINDINGS: LIVER: The liver is normal size, contour and echogenicity. A 2.7 x 2.6 cm homogeneously hyperechoic lesion in the right hepatic lobe was identified which is most consistent with a cavernous hemangioma. No other liver lesions are appreciated. No underlying parenchymal liver disease. BILIARY SYSTEM: Trace sludge is identified in the gallbladder. No evidence for shadowing gallstones, abnormal dilatation or wall thickening. The CBD measures 3 mm. PANCREAS: Normal. SPLEEN: Normal. KIDNEYS: Normal. AORTA/IVC: Normal. ASCITES: None. IMPRESSION: Trace sludge in the gallbladder. No cholelithiasis or biliary dilatation. Probable 2.6 cm cavernous hemangioma in the right hepatic lobe.
--- NOTE | 2017-11-25 12:23 | Progress Note ---
Assessment and Plan 32 yo F with abd pain, n/v, diarrhea 1. gastroenteritis Plan: 1. RUQ u/s results noted - scant sludge, no stones. 2. restart clear liquids -> adv diet as tolerated 2. IVF 3. pain and nausea control 4. GI consult noted 5. no surgical intervention, may be discharged if tolerates clear liquids Thank you for this consultation. D/W Dr. Rousseau. Subjective Date of service: 11/25/17 Narrative: Pt seen and examined. Feels better. Minimal nausea. No emesis. Abd pain improved. +loose BM today. Tolerating liquids. Objective Vital Signs - 12hr 11/25/17 07:25 Temperature 99.2 F Pulse Rate 53 L Respiratory 20 Rate Blood Pressure 145/92 O2 Sat by Pulse 100 Oximetry - General physical appearance Narrative Exam: Gen: AAOx3. NAD Abd: soft, NT, ND - Labs 11/25/17 05:27 11/25/17 05:27 Diabetes panel 11/25/17 Range/Units 05:27 Sodium 137 (137-145) mmol/L Potassium 3.4 L (3.6-5.0) mmol/L Chloride 97.2 L (98-107) mmol/L Carbon Dioxide 24 (22-30) mmol/L BUN 4 L (7-17) mg/dL Creatinine 0.6 L (0.7-1.2) mg/dL Glucose 105 H (65-100) mg/dL Calcium 9.2 (8.4-10.2) mg/dL AST 11 (5-40) units/L ALT 8 (7-56) units/L Alkaline Phosphatase 55 (35-129) units/L Total Protein 7.8 (6.3-8.2) g/dL Albumin 3.9 (3.9-5) g/dL Calcium panel 11/25/17 Range/Units 05:27 Calcium 9.2 (8.4-10.2) mg/dL Albumin 3.9 (3.9-5) g/dL Pituitary panel 11/25/17 Range/Units 05:27 Sodium 137 (137-145) mmol/L Potassium 3.4 L (3.6-5.0) mmol/L Chloride 97.2 L (98-107) mmol/L Carbon Dioxide 24 (22-30) mmol/L BUN 4 L (7-17) mg/dL Creatinine 0.6 L (0.7-1.2) mg/dL Glucose 105 H (65-100) mg/dL Calcium 9.2 (8.4-10.2) mg/dL Adrenal panel 11/25/17 Range/Units 05:27 Sodium 137 (137-145) mmol/L Potassium 3.4 L (3.6-5.0) mmol/L Chloride 97.2 L (98-107) mmol/L Carbon Dioxide 24 (22-30) mmol/L BUN 4 L (7-17) mg/dL Creatinine 0.6 L (0.7-1.2) mg/dL Glucose 105 H (65-100) mg/dL Calcium 9.2 (8.4-10.2) mg/dL Total Bilirubin 0.40 (0.1-1.2) mg/dL AST 11 (5-40) units/L ALT 8 (7-56) units/L Alkaline Phosphatase 55 (35-129) units/L Total Protein 7.8 (6.3-8.2) g/dL Albumin 3.9 (3.9-5) g/dL
[2017-11-25] MEDS ORDERED: PERCOCET 5/325 PO PRN (12:41)
[2017-11-25] MEDS ORDERED: MORPHINE IV PRN (12:41)
--- NOTE | 2017-11-25 12:55 | Discharge Summary ---
Providers - Providers Date of Admission: 11/23/17 20:27 Attending physician: JOSE ALEJANDRO ROCHE MD 11/23/17 19:42 Consult to Physician [CONS] Routine Consulting Provider: LIANET WILKS Reason For Exam: intractable vomiting and abd pain Place consult to:: Dr. Wilks Notified:: Via her phone Phone number called:: her number Was contact made?: Yes If yes, spoke with:: Dr. Wilks Time called:: 18:39 Comment:: Dr. Britt (er dr) spoke with Dr. Wilks 11/24/17 11:10 Consult to Physician [CONS] Routine Consulting Provider: PINO GUNN Reason For Exam: N&V Place consult to:: office Notified:: yes Primary care physician: ASHOK TRAN Hospitalization Reason for admission: Gastroenteritis Condition: Stable Hospital course: 32 year-old female poor historian presents to the emergency department nausea, vomiting and diarrhea for about 3 to 4 days. Associated with Rt Upper quadrant /flank pain intermittent in nature. Vomiting x4 to 6 times per day. Loose watery BM's 3 to 4 per day. No fever or chills. No recent Abx use. She also denies any illicit drug use. She rates the pain 5/10 in intensity today. She states is sharp and intermittent in nature she denies any recent exposure she says the pain was significant enough that she had a syncopal episode while ambulating. Patient on admission was started on fluid resuscitation with IV. She was noted to have a bradycardia on echocardiogram showing preserved ejection fraction bradycardia did resolve. She started tolerating by mouth intake with clear liquids but could not tolerate Zofran she states that Reglan has been used in the past. Her pain became more controlled. She wasn't relative by GI will recommendation for outpatient reevaluation and no need for urgent endoscopy at this time. Surgery also did see her with no further recommendation imaging studies were unremarkable except for an enhanced lesion on the sixth rib which although malignancy could not be ruled out was deemed to be secondary to a fall. I did discuss this with the patient and recommended a bone scan for better evaluation. She denies tobacco use. She is clinically stable at this point for discharge Discharge diagnosis (1) Acute gastroenteritis (2) Dehydration (3) Syncope (4) peritoneal irritation secondary to acute gastroenteritis Disposition: DC- TO HOME OR SELFCARE Time spent for discharge: 35 MINS Core Measure Documentation - Palliative Care Palliative Care/ Comfort Measures: Not Applicable - Core Measures Any of the following diagnoses?: none - VTE Discharge Requirements Deep Vein Thrombosis/Pulmonary Embolism Present on Admission: No Exam - Physical Exam Narrative exam: VITAL SIGNS: Reviewed. GENERAL: The patient appeared well nourished and normally developed. Vital signs as documented. HEAD: No signs of head trauma. EYES: Pupils are equal. Extraocular motions intact. EARS: Hearing grossly intact. MOUTH: Oropharynx is normal. NECK: No adenopathy, no JVD. CHEST: Chest with clear breath sounds bilaterally. No wheezes, rales, or rhonchi. CARDIAC: Regular rate and rhythm. S1 and S2, without murmurs, gallops, or rubs. VASCULAR: No Edema. Peripheral pulses normal and equal in all extremities. ABDOMEN: Soft, nontender today. No sign of distention. No rebound or guarding, and no masses palpated. Bowel Sounds normal. MUSCULOSKELETAL: Good range of motion of all major joints. Extremities without clubbing, cyanosis or edema. NEUROLOGIC EXAM: Alert and oriented x 3. No focal sensory or strength deficits. Speech normal. Follows commands. PSYCHIATRIC: Mood normal. SKIN: No rash or lesions. - Constitutional Vitals: Temp Pulse Resp BP Pulse Ox 99.2 F 53 L 20 145/92 100 11/25/17 07:25 11/25/17 07:25 11/25/17 07:25 11/25/17 07:25 11/25/17 07:25 Plan Activity: advance as tolerated, fall precautions Diet: advance as tolerated Follow up with: ASHOK TRAN MD [Primary Care Provider] - 3-5 Days ANTONIA MORRIS MD [Staff Physician] - 14 Days Prescriptions: Metoclopramide HCl [Reglan TAB] 5 mg PO TIDAC #20 tablet traMADol [Ultram] 50 mg PO Q6HR PRN #14 tablet PRN Reason: Pain
--- NOTE | 2017-11-25 15:08 | Gastroenterology Progress Note ---
Assessment and Plan GI: stable w/ advance diet - continue current meds - ok to d/c from GI standpoint - will sign off, call if needed Subjective Date of service: 11/25/17 Interval history: - tolerating advance diet, denies other GI complaints Objective - Constitutional Vitals: Temp Pulse Resp BP Pulse Ox 99.2 F 53 L 20 145/92 100 11/25/17 07:25 11/25/17 07:25 11/25/17 07:25 11/25/17 07:25 11/25/17 07:25 General appearance: no acute distress - Respiratory Respiratory: bilateral: CTA - Cardiovascular Rhythm: regular Heart Sounds: Present: S1 & S2 - Gastrointestinal General gastrointestinal: Present: soft, non-tender - Labs CBC & Chem 7: 11/25/17 05:27 11/25/17 05:27 Labs: Laboratory Results - last 24 hr 11/25/17 11/25/17 05:27 05:27 WBC 8.5 RBC 5.03 Hgb 12.6 Hct 39.6 MCV 79 MCH 25 L MCHC 32 RDW 14.4 Plt Count 237 Sodium 137 Potassium 3.4 L Chloride 97.2 L Carbon Dioxide 24 Anion Gap 19 BUN 4 L Creatinine 0.6 L Estimated GFR > 60 BUN/Creatinine Ratio 7 Glucose 105 H Calcium 9.2 Total Bilirubin 0.40 AST 11 ALT 8 Alkaline Phosphatase 55 Total Protein 7.8 Albumin 3.9 Albumin/Globulin Ratio 1.0
[2017-11-25 16:18] VITALS: BP 131/85
--- NOTE | 2017-11-25 17:27 | Consultation ---
INDICATION: Abdominal pain. HISTORY OF PRESENT ILLNESS: The patient is a 32-year-old black female presents for nausea, vomiting, abdominal pain, and diarrhea. The patient reports 4 days of upper abdominal pain with nausea, vomiting and loose stools. She reports she has never had symptoms like this before. She reports some mild fevers and chills. She reports no rectal bleeding. Denies any weight loss. The patient reports symptoms progressively got worse and so she decided to come to the Emergency Room. Denies any sick contacts. Denies any other specific problems or complaints. PAST MEDICAL HISTORY: None. MEDICATIONS: See chart. ALLERGIES: No known drug allergy. SOCIAL HISTORY: Reported positive alcohol and marijuana and positive smoker. FAMILY HISTORY: Negative for colon cancer, IBD, or liver disease. REVIEW OF SYSTEMS: GENERAL: Reports mild weakness. HEENT: No visual complaints or tinnitus. PULMONARY: No short of breath. CV: No chest pain. GASTROINTESTINAL: Reports abdominal pain and nausea. All points of 13-point review of systems otherwise negative. PHYSICAL EXAMINATION: VITAL SIGNS: Temperature of 98.9, pulse 80, blood pressure 159/80. GENERAL: Fairly nourished female, in no acute distress. HEENT: Pupils are equal, round and reactive. PULMONARY: Clear. CARDIOVASCULAR: RR rhythm. Normal S1, S2. ABDOMEN: Positive bowel sounds, soft, mild discomfort, no guarding, no rebound. SKIN: No obvious rashes. LABORATORY DATA: Pertinent for white count of 12, hemoglobin and hematocrit were 11.4 and 35.3 and platelet count of 215. Chem-7 is within normal limits. LFTs within normal limits. CT scan shows signs consistent with enteritis. ASSESSMENT: A 32-year-old female, who presents with nausea, vomiting and loose stools for [address] scan is consistent with enteritis. Suspect gastroenteritis. Management is noted below. PLAN: 1. If the patient's diarrhea continues, we will get stool cultures including C. diff, O and P and leukocytes. 2. Continue antibiotics as ordered. 3. Clear liquid diet, advance to soft as tolerated. 4. No indication for endoscopic evaluation at this time. 5. If the patient is stable and tolerating p.o. in a.m., okay to discharge from GI standpoint. JOB# [id number] CAB/NTS MTDD
== END 2017-11-25 17:55 | disposition home or self-care (01) | DRG 391 ==
LOC: ED 03:21 → 3A 20:27
PROVIDERS: ADMIT Internal Medicine; ATTEND Internal Medicine
DX: K52.9 Noninfective gastroenteritis and colitis, unspecified (principal); K65.9 Peritonitis, unspecified; N83.209 Unspecified ovarian cyst, unspecified side; E86.0 Dehydration; F17.210 Nicotine dependence, cigarettes, uncomplicated; F12.90 Cannabis use, unspecified, uncomplicated
CPT/HCPCS: 36415; 74020; 74177; 76700; 80048; 80053; 80074; 81001; 83036; 83690; 84443; 84484; 84703; 85025; 85027; 90686; 93005; 93010; 93306; 96361; 96374; 96375; 99285; 99406; J1644; J2270; J2543; J2765; J7030; J7042; Q0169; Q9967

== ENCOUNTER 2019-07-26 16:07 | Emergency (ER) | payer MEDICAID ==
[2019-07-26 16:46] VITALS: BP 126/69
--- NOTE | 2019-07-26 16:48 | Event Note ---
ED Screening Note Date of service: 07/26/19 Time: 16:45 ED Screening Note: 34 y o presents to Ed with productive coughing x yesterday after working outside causing chest pain This initial assessment/diagnostic orders/clinical plan/treatment(s) is/are subject to change based on patients health status, clinical progression and re- assessment by fellow clinical providers in the ED. Further treatment and workup at subsequent clinical providers discretion. Patient/guardian urged not to elope from the ED as their condition may be serious if not clinically assessed and managed. Initial orders include: cxr
--- NOTE | 2019-07-26 17:59 | XRay Report ---
CHEST 2 VIEWS INDICATION / CLINICAL INFORMATION: Cough. COMPARISON: None available. FINDINGS: SUPPORT DEVICES: None. HEART / MEDIASTINUM: No significant abnormality. LUNGS / PLEURA: No significant pulmonary or pleural abnormality. No pneumothorax. ADDITIONAL FINDINGS: No significant additional findings. IMPRESSION: 1. No acute findings. Signer Name: oJel Lisa MD Signed: 07/26/2019 5:54 PM Workstation Name: [id number]
[2019-07-26] MEDS ORDERED: IBUPROFEN PO ONE (19:43)
--- NOTE | 2019-07-26 19:56 | Emergency Department Report ---
ED General Adult HPI - General Chief complaint: Chest Pain Stated complaint: CHEST PAIN Time Seen by Provider: 07/26/19 16:45 Source: patient Mode of arrival: Ambulatory Limitations: No Limitations - History of Present Illness Initial comments: 34-year-old -Citizen Of [place] female presents to the emergency room complaining of chest wall tenderness worse with coughing and runny nose and nasal congestion. Patient reports he is up-to-date on all her vaccines. She denies any past medical history currently takes no medications on a daily basis. Patient denies any fever chills no nausea vomiting. He does admit to sore throat and increased nasal congestion Onset/Timin -: days(s) Location: chest Severity scale (0 -10): 0 Improves with: none Worsens with: none - Related Data Previous Rx's Medication Instructions Recorded Last Taken Type Metoclopramide HCl [Reglan TAB] 5 mg PO TIDAC #20 tablet 11/25/17 Unknown Rx traMADol [Ultram] 50 mg PO Q6HR PRN #14 tablet 11/25/17 Unknown Rx Benzonatate [Tessalon Perles] 100 mg PO Q8HR #15 capsule 07/26/19 Unknown Rx Cetirizine HCl/Pseudoephedrine 1 each PO BID 15 Days #30 07/26/19 Unknown Rx [Zyrtec-D Tablet] tab.er.12h Fluticasone Furoate [Flonase 15.8 ml NS QDAY #1 spray.susp 07/26/19 Unknown Rx Sensimist] Ibuprofen [Motrin 600 MG tab] 600 mg PO Q8H PRN #30 tablet 07/26/19 Unknown Rx Allergies Allergy/AdvReac Type Severity Reaction Status Date / Time ondansetron HCl AdvReac Nausea Verified 07/26/19 16:09 [From Zofran (as hydrochloride)] ED Review of Systems ROS: Stated complaint: CHEST PAIN Other details as noted in HPI Comment: All other systems reviewed and negative ENT: congestion, other Respiratory: cough Cardiovascular: chest pain Gastrointestinal: denies: abdominal pain, nausea, diarrhea ED Past Medical Hx - Past Medical History Hx Hypertension: No Hx Congestive Heart Failure: No Hx Diabetes: No Hx Seizures: No Hx Asthma: No Hx COPD: No - Surgical History Additional Surgical History: right knee - Social History Smoking Status: Current Every Day Smoker Substance Use Type: Alcohol - Medications Home Medications: Home Medications Medication Instructions Recorded Confirmed Last Taken Type Metoclopramide HCl [Reglan TAB] 5 mg PO TIDAC #20 tablet 11/25/17 Unknown Rx traMADol [Ultram] 50 mg PO Q6HR PRN #14 tablet 11/25/17 Unknown Rx Benzonatate [Tessalon Perles] 100 mg PO Q8HR #15 capsule 07/26/19 Unknown Rx Cetirizine HCl/Pseudoephedrine 1 each PO BID 15 Days #30 07/26/19 Unknown Rx [Zyrtec-D Tablet] tab.er.12h Fluticasone Furoate [Flonase 15.8 ml NS QDAY #1 spray.susp 07/26/19 Unknown Rx Sensimist] Ibuprofen [Motrin 600 MG tab] 600 mg PO Q8H PRN #30 tablet 07/26/19 Unknown Rx ED Physical Exam - General Limitations: No Limitations General appearance: alert, in no apparent distress - Head Head exam: Present: atraumatic, normocephalic - Eye Eye exam: Present: normal appearance - ENT ENT exam: Present: mucous membranes moist, other (copious amount of nasal secretions) - Expanded ENT Exam Expanded Throat exam: Positive: tonsillar erythema, tonsillomegaly, tonsillar exudate - Neck Neck exam: Present: normal inspection, tenderness, lymphadenopathy - Respiratory Respiratory exam: Present: normal lung sounds bilaterally. Absent: respiratory distress - Cardiovascular Cardiovascular Exam: Present: regular rate, normal rhythm. Absent: systolic murmur, diastolic murmur, rubs, gallop - GI/Abdominal GI/Abdominal exam: Present: soft, normal bowel sounds - Back Exam Back exam: Present: normal inspection - Neurological Exam Neurological exam: Present: alert, oriented X3, normal gait - Psychiatric Psychiatric exam: Present: normal affect, normal mood - Skin Skin exam: Present: warm, dry, intact, normal color. Absent: rash ED Course Vital Signs 07/26/19 16:44 Temperature 98.5 F Pulse Rate 87 Respiratory 18 Rate Blood Pressure 126/69 O2 Sat by Pulse 99 Oximetry ED Medical Decision Making - Medical Decision Making 34-year-old -Citizen Of [place] female presents to the emergency room complaining of chest wall tenderness worse with coughing and runny nose and nasal congestion. Patient reports he is up-to-date on all her vaccines. She denies any past medical history currently takes no medications on a daily basis. Patient denies any fever chills no nausea vomiting. He does admit to sore throat and increased nasal congestion. Chest x-ray is negative. We'll treat patient as a viral syndrome place her on ibuprofen and Zyrtec's Flonase Critical care attestation.: If time is entered above; I have spent that time in minutes in the direct care of this critically ill patient, excluding procedure time. ED Disposition Clinical Impression: Allergic rhinitis with postnasal drip Disposition: DC- TO HOME OR SELFCARE Is pt being admited?: No Does the pt Need Aspirin: No Condition: Stable Instructions: Allergic Rhinitis (ED) Additional Instructions: Please take medications as prescribed. Follow-up with primary care provider if his symptoms persist or gets worse. Your chest x-ray was negative for any acute findings. Prescriptions: Fluticasone Furoate [Flonase Sensimist] 15.8 ml NS QDAY #1 spray.susp Ibuprofen [Motrin 600 MG tab] 600 mg PO Q8H PRN #30 tablet PRN Reason: Pain , Severe (7-10) Benzonatate [Tessalon Perles] 100 mg PO Q8HR #15 capsule Cetirizine HCl/Pseudoephedrine [Zyrtec-D Tablet] 1 each PO BID 15 Days #30 tab.er.12h Referrals: PRIMARY CARE, [Primary Care Provider] - 3-5 Days Forms: Work/School Release Form(ED)
== END 2019-07-26 20:07 | disposition home or self-care (01) ==
LOC: ED 16:07
DX: J30.9 Allergic rhinitis, unspecified (principal); F17.200 Nicotine dependence, unspecified, uncomplicated; Z79.899 Other long term (current) drug therapy; Z88.6 Allergy status to analgesic agent
CPT/HCPCS: 71046; 93005; 93010; 99283

== ENCOUNTER 2019-12-07 12:33 | Emergency (ER) | payer OTHER, MEDICAID ==
[2019-12-07 13:18] VITALS: BP 134/86
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
== END 2019-12-07 14:00 | disposition left against medical advice (07) ==
LOC: ED 12:33
DX: R68.84 Jaw pain (principal); Z88.8 Allergy status to other drugs, medicaments and biological substances; V49.40XA Driver injured in collision with unspecified motor vehicles in traffic accident, initial encounter; Y93.89 Activity, other specified; Y92.410 Unspecified street and highway as the place of occurrence of the external cause; Y99.8 Other external cause status
CPT/HCPCS: 99281